=== PATIENT | female | born 1940 | race Asian ===

== ENCOUNTER 2017-09-02 23:44 | Emergency (ER) | payer OTHER ==
[2017-09-03 01:02] LABS: URINE PH (Dip) POC 6.5 (5.0-8.5)
[2017-09-03 01:02] LABS: URINE BLOOD (Dip) POC Negative (NEGATIVE); URINE GLUCOSE (Dip) POC Negative (NEGATIVE); URINE KETONES (Dip) POC Negative (NEGATIVE); URINE LEUKOCYTE EST (Dip) POC Negative (NEGATIVE); URINE NITRITE (Dip) POC Negative (NEGATIVE); URINE TOTAL PROTEIN POC Negative (NEGATIVE)
[2017-09-03 01:45] LABS: ADD MAN DIFF? NO
[2017-09-03 01:46] LABS: BASOPHILS % 0.5 % (0.0-2.0); EOSINOPHILS # 0.1 10^3/ul (0.0-0.5); EOSINOPHILS % 1.2 % (0.0-7.0); HEMATOCRIT 37.7 % (37.0-47.0); HEMOGLOBIN 12.4 g/dl (12.0-16.0); LYMPHOCYTES # 2.4 10^3/ul (0.8-2.9); LYMPHOCYTES % 37.6 % (15.0-51.0); MEAN CORPUSCULAR HEMOGLOBIN 30.5 pg (29.0-33.0); MEAN CORPUSCULAR HGB CONC 32.9 g/dl (32.0-37.0); MEAN CORPUSCULAR VOLUME 92.6 fl (82.0-101.0); MEAN PLATELET VOLUME 9.6 fl (7.4-10.4); MONOCYTE # 0.5 10^3/ul (0.3-0.9); MONOCYTES % 8.3 % (0.0-11.0); NEUTROPHIL # 3.4 10^3/ul (1.6-7.5); NEUTROPHILS % 52.2 % (39.0-77.0); PLATELET COUNT 241 10^3/UL (140-415); RED BLOOD COUNT 4.07 10^6/ul (4.20-5.40)
[2017-09-03 01:46] LABS: WHITE BLOOD COUNT 6.5 10^3/ul (4.8-10.8)
[2017-09-03 02:05] LABS: INR 0.85; PROTIME 11.7 Sec (11.9-14.9); PT RATIO 0.9
[2017-09-03 02:06] LABS: PARTIAL THROMBOPLASTIN TIME 32.3 Sec (25.0-35.0)
[2017-09-03 02:10] LABS: ALANINE AMINOTRANSFERASE 23 IU/L (13-69); ALBUMIN/GLOBULIN RATIO 1.17; ALKALINE PHOSPHATASE 45 IU/L (42-121); ANION GAP 18 (8-16); ASPARTATE AMINO TRANSFERASE 26 IU/L (15-46); BILIRUBIN,INDIRECT 0.4 mg/dl (0-1.1); BILIRUBIN,TOTAL 0.4 mg/dl (0.2-1.3); BLOOD UREA NITROGEN 19 mg/dl (7-20); CALCIUM 9.5 mg/dl (8.4-10.2); CARBON DIOXIDE 28 mmol/L (21-31); CHLORIDE 103 mmol/L (97-110); CREATININE 0.94 mg/dl (0.44-1.00); GLUCOSE 143 mg/dl (70-220); POTASSIUM 4.5 mmol/L (3.5-5.1); SODIUM 144 mmol/L (135-144); TOTAL PROTEIN 7.4 g/dl (6.1-8.1)
[2017-09-03 02:13] LABS: LACTIC ACID 4.6 mmol/L (0.5-2.0)
[2017-09-03 02:28] LABS: TROPONIN-I < 0.012 ng/ml (0.00-0.12)
[2017-09-03] MEDS: PIPER-TAZO 3.375 GM IV (PMX) 100 ML IVPB (03:02)
[2017-09-03] MEDS: VANCOMYCIN 1 GM (PMX) 250 ML IVPB (03:02)
[2017-09-03] MEDS: SOD CHLORIDE 0.9% IV (03:02)
[2017-09-03 04:27] LABS: LACTIC ACID 2.5 mmol/L (0.5-2.0)
[2017-09-03 05:54] LABS: LACTIC ACID 1.8 mmol/L (0.5-2.0)
[2017-09-03] MEDS ORDERED: SOD CHLORIDE 0.9% 1,000 ML IV (08:23)
[2017-09-03] MEDS ORDERED: ONDANSETRON 4 MG INJ IV (08:30)
[2017-09-03] MEDS ORDERED: morphine 2 MG INJ IV (08:30)
[2017-09-03] MEDS ORDERED: NACL 0.9% 3 ML SYG IV (08:30)
[2017-09-03] MEDS ORDERED: HYDROCODONE/APAP (5/325) TAB PO (08:30)
[2017-09-03] MEDS ORDERED: ACETAMINOPHEN 325 MG TAB PO (08:30)
[2017-09-03] MEDS: INSULIN GLARGINE [LANtus] 3 ML PEN SC (09:00)
[2017-09-03] MEDS ORDERED: DEXTROSE 50% 50 ML SYRINGE IV ×2 (09:00)
[2017-09-03] MEDS ORDERED: GLUCOSE GEL 15 GRAM TUBE BUCCAL (09:00)
[2017-09-03] MEDS ORDERED: GLUCOSE GEL 15 GRAM TUBE PO ×2 (09:00)
[2017-09-03] MEDS ORDERED: GLUCAGON 1 MG INJ IM (09:00)
[2017-09-03] MEDS: METOPROLOL (XL) 25 MG TAB PO (09:36)
[2017-09-03] MEDS ORDERED: INSULIN ASPART [NOVOLOG] 3 ML PEN SC (12:00)
[2017-09-03] MEDS ORDERED: ATORVASTATIN 10 MG TAB PO (21:00)
[2017-09-04] MEDS ORDERED: ACCU-CHEK XX (02:00)
== END 2017-09-03 09:38 | disposition home or self-care (01) ==
LOC: E/R 23:44
DX: R65.21 Severe sepsis with septic shock (principal); I10 Essential (primary) hypertension; E11.9 Type 2 diabetes mellitus without complications; Z79.82 Long term (current) use of aspirin
CPT/HCPCS: 36415; 70450; 71045; 80053; 81003; 82962; 83605; 84484; 85025; 85610; 85730; 87040; 87086; 93005; 96374; 96375; 99291-25

== ENCOUNTER 2017-10-04 20:39 | Emergency (ER) | payer OTHER ==
[2017-10-04 22:54] LABS: ADD MAN DIFF? NO
[2017-10-04 22:56] LABS: BASOPHILS % 0.2 % (0.0-2.0); EOSINOPHILS # 0.1 10^3/ul (0.0-0.5); EOSINOPHILS % 0.6 % (0.0-7.0); HEMATOCRIT 37.1 % (37.0-47.0); HEMOGLOBIN 12.1 g/dl (12.0-16.0); LYMPHOCYTES # 1.7 10^3/ul (0.8-2.9); LYMPHOCYTES % 19.5 % (15.0-51.0); MEAN CORPUSCULAR HEMOGLOBIN 29.5 pg (29.0-33.0); MEAN CORPUSCULAR HGB CONC 32.6 g/dl (32.0-37.0); MEAN CORPUSCULAR VOLUME 90.5 fl (82.0-101.0); MONOCYTE # 0.8 10^3/ul (0.3-0.9); MONOCYTES % 8.6 % (0.0-11.0); NEUTROPHIL # 6.3 10^3/ul (1.6-7.5); NEUTROPHILS % 70.8 % (39.0-77.0); PLATELET COUNT 239 10^3/UL (140-415); RED CELL DISTRIBUTION WIDTH 12.7 % (11.5-14.5)
[2017-10-04 22:56] LABS: WHITE BLOOD COUNT 8.9 10^3/ul (4.8-10.8)
[2017-10-04] MEDS: ONDANSETRON 4 MG INJ IV (22:57)
[2017-10-04] MEDS: SOD CHLORIDE 0.9% 1,000 ML IV (22:57)
[2017-10-04] MEDS: MECLIZINE 12.5 MG TAB PO (22:57)
[2017-10-04 23:06] LABS: ADD UMIC NO; UR ASCORBIC ACID NEGATIVE (NEGATIVE); UR BILIRUBIN (Dip) NEGATIVE (NEGATIVE); UR BLOOD (Dip) NEGATIVE (NEGATIVE); UR CLARITY CLEAR (CLEAR); UR COLOR YELLOW (YELLOW); UR GLUCOSE (Dip) 1+ mg/dL (NEGATIVE); UR KETONES (Dip) NEGATIVE (NEGATIVE); UR LEUKOCYTE ESTERASE (Dip) NEGATIVE Leu/ul (NEGATIVE); UR NITRITE (Dip) NEGATIVE (NEGATIVE); UR SPECIFIC GRAVITY (Dip) 1.008 (1.003-1.030); UR TOTAL PROTEIN (Dip) NEGATIVE (NEGATIVE); UR UROBILINOGEN (Dip) NEGATIVE (NEGATIVE)
[2017-10-04 23:13] LABS: ALANINE AMINOTRANSFERASE 28 IU/L (13-69); ALBUMIN 3.8 g/dl (3.3-4.9); ALBUMIN/GLOBULIN RATIO 1.11; ALKALINE PHOSPHATASE 49 IU/L (42-121); ANION GAP 16 (8-16); ASPARTATE AMINO TRANSFERASE 31 IU/L (15-46); BILIRUBIN,INDIRECT 0.6 mg/dl (0-1.1); BILIRUBIN,TOTAL 0.6 mg/dl (0.2-1.3); BLOOD UREA NITROGEN 18 mg/dl (7-20); CALCIUM 9.9 mg/dl (8.4-10.2); CARBON DIOXIDE 27 mmol/L (21-31); CHLORIDE 102 mmol/L (97-110); CREATINE KINASE 23 IU/L (23-200); GLUCOSE 179 mg/dl (70-220); POTASSIUM 4.1 mmol/L (3.5-5.1); SODIUM 141 mmol/L (135-144); TOTAL PROTEIN 7.2 g/dl (6.1-8.1)
[2017-10-04 23:16] LABS: INR 0.86; PROTIME 11.8 Sec (11.9-14.9); PT RATIO 0.9
[2017-10-04 23:17] LABS: PARTIAL THROMBOPLASTIN TIME 33.5 Sec (25.0-35.0)
[2017-10-04 23:25] LABS: CK INDEX 1.5; CK-MB 0.34 ng/ml (0.0-2.4)
[2017-10-04 23:26] LABS: TROPONIN-I < 0.012 ng/ml (0.000-0.120)
[2017-10-04 23:30] LABS: FREE THYROXINE INDEX (Calc) 3.26 ug/ml (0.65-3.89); T3 UPTAKE 35.8 % (23.5-40.5); T4 (THYROXINE) 9.1 ug/dl (5.5-11.0)
[2017-10-05] MEDS ORDERED: AZITHROMYCIN 500MG/NS (PMX) 250 ML IVPB (00:30)
[2017-10-05] MEDS: CEPHALEXIN 500 MG CAP PO (02:55)
== END 2017-10-05 03:55 | disposition home or self-care (01) ==
LOC: E/R 10-05 03:55
DX: E86.0 Dehydration (principal); N39.0 Urinary tract infection, site not specified; E11.9 Type 2 diabetes mellitus without complications; I10 Essential (primary) hypertension; R10.9 Unspecified abdominal pain; Z79.84 Long term (current) use of oral hypoglycemic drugs
CPT/HCPCS: 36415; 70450; 71045; 74176; 80053; 81003; 82550; 82553; 84436; 84479; 84484; 85025; 85610; 85730; 87086; 96374; 99285-25

== ENCOUNTER 2018-07-08 09:45 | Inpatient (IN) | payer OTHER ==
[2018-07-08] MEDS: SODIUM CHLORIDE 0.9% 1L BAG IV* (10:14)
[2018-07-08 10:15] LABS: ADD MAN DIFF? NO
[2018-07-08 10:18] LABS: BASOPHILS % 0.1 % (0.0-2.0); HEMATOCRIT 40.8 % (37.0-47.0); HEMOGLOBIN 13.3 g/dl (12.0-16.0); LYMPHOCYTES # 1.8 10^3/ul (0.8-2.9); LYMPHOCYTES % 16.3 % (15.0-51.0); MEAN CORPUSCULAR HEMOGLOBIN 30.2 pg (29.0-33.0); MEAN CORPUSCULAR HGB CONC 32.6 g/dl (32.0-37.0); MEAN CORPUSCULAR VOLUME 92.7 fl (82.0-101.0); MEAN PLATELET VOLUME 9.4 fl (7.4-10.4); MONOCYTE # 0.9 10^3/ul (0.3-0.9); MONOCYTES % 7.8 % (0.0-11.0); NEUTROPHIL # 8.2 10^3/ul (1.6-7.5); NEUTROPHILS % 75.5 % (39.0-77.0); PLATELET COUNT 239 10^3/UL (140-415); RED CELL DISTRIBUTION WIDTH 13.7 % (11.5-14.5)
[2018-07-08 10:18] LABS: WHITE BLOOD COUNT 10.9 10^3/ul (4.8-10.8)
[2018-07-08 10:26] LABS: INR 1.01; PROTIME 13.4 Sec (11.9-14.9)
[2018-07-08 10:27] LABS: PARTIAL THROMBOPLASTIN TIME 32.6 Sec (23.0-35.0)
[2018-07-08 10:29] LABS: ALANINE AMINOTRANSFERASE 12 IU/L (13-69); ALBUMIN 4.3 g/dl (3.3-4.9); ALKALINE PHOSPHATASE 55 IU/L (42-121); ANION GAP 11 (5-13); ASPARTATE AMINO TRANSFERASE 24 IU/L (15-46); BILIRUBIN,INDIRECT 0.7 mg/dl (0-1.1); BILIRUBIN,TOTAL 0.7 mg/dl (0.2-1.3); BLOOD UREA NITROGEN 17 mg/dl (7-20); CALCIUM 9.4 mg/dl (8.4-10.2); CARBON DIOXIDE 23 mmol/L (21-31); CHLORIDE 105 mmol/L (97-110); CREATININE 0.95 mg/dl (0.44-1.00); GLUCOSE 274 mg/dl (70-220); POTASSIUM 4.5 mmol/L (3.5-5.1); SODIUM 139 mmol/L (135-144); TOTAL PROTEIN 8.2 g/dl (6.1-8.1)
[2018-07-08 10:40] LABS: TROPONIN-I < 0.012 ng/ml (0.000-0.120)
[2018-07-08] MEDS: ACETAMINOPHEN 325 MG TAB PO ×2 (10:41→21:23)
[2018-07-08] MEDS: KETOROLAC 15 MG INJ IV (10:41)
[2018-07-08] MEDS: CEFEPIME 1GM/50 ML (PMX) 50 ML IVPB (10:41)
[2018-07-08 11:00] LABS: ADD UMIC YES; UR ASCORBIC ACID NEGATIVE (NEGATIVE); UR BACTERIA MANY /HPF (NONE SEEN); UR BILIRUBIN (Dip) NEGATIVE (NEGATIVE); UR BLOOD (Dip) 1+ mg/dL (NEGATIVE); UR CLARITY SLIGHTLY CLOUDY (CLEAR); UR COLOR YELLOW (YELLOW); UR GLUCOSE (Dip) 3+ mg/dL (NEGATIVE); UR KETONES (Dip) 1+ mg/dL (NEGATIVE); UR LEUKOCYTE ESTERASE (Dip) NEGATIVE Leu/ul (NEGATIVE); UR MUCUS FEW /HPF (NONE SEEN); UR NITRITE (Dip) POSITIVE (NEGATIVE); UR RBC 8 /HPF (0-5); UR SPECIFIC GRAVITY (Dip) 1.021 (1.003-1.030); UR TOTAL PROTEIN (Dip) 1+ mg/dl (NEGATIVE); UR UROBILINOGEN (Dip) 1+ mg/dL (NEGATIVE); UR WBC 9 /HPF (0-5)
[2018-07-08] MEDS: VANCOMYCIN 1 GM (PMX) 250 ML IVPB (11:18)
[2018-07-08] MEDS ORDERED: ACETAMINOPHEN 325 MG TAB PO (13:30)
[2018-07-08] MEDS ORDERED: ONDANSETRON 4 MG INJ IV (13:30)
[2018-07-08 14:44] LABS: LACTIC ACID 0.8 mmol/L (0.5-2.0)
[2018-07-08] MEDS ORDERED: MAGNESIUM HYDROXIDE 30ML CUP PO (15:00)
[2018-07-08] MEDS ORDERED: NITROGLYCERIN (SL) 0.4 MG TAB SL (15:00)
[2018-07-08] MEDS ORDERED: GLUCOSE GEL 15 GRAM TUBE PO ×2 (15:00)
[2018-07-08] MEDS ORDERED: DEXTROSE 50% 50 ML SYRINGE IV ×2 (15:00)
[2018-07-08] MEDS ORDERED: ALBUTEROL/IPRATROPIUM (NEB) 3 ML AMP HHN (15:00)
[2018-07-08] MEDS ORDERED: NACL 0.9% 3 ML SYG IV (15:00)
[2018-07-08] MEDS ORDERED: LORAZEPAM 2 MG INJ IV (15:00)
[2018-07-08] MEDS ORDERED: GLUCAGON 1 MG INJ IM (15:00)
[2018-07-08] MEDS ORDERED: GLUCOSE GEL 15 GRAM TUBE BUCCAL (15:00)
[2018-07-08 15:36] LABS: FREE T4 (FREE THYROXINE) 1.56 ng/dl (0.78-2.44)
[2018-07-08 16:02] LABS: LIPASE 78 U/L (23-300)
[2018-07-08] MEDS: SOD CHLORIDE 0.45% 1,000 ML IV (16:23)
[2018-07-08] MEDS: CIPROFLOXACIN 0.3% 2.5 ML OPH BOTH EYES (17:20)
[2018-07-08] MEDS: INSULIN ASPART [NOVOLOG] 3 ML PEN SC ×2 (18:09→21:00)
[2018-07-08] MEDS: PIPER-TAZO 3.375 GM IV (PMX) 100 ML IVPB (18:10)
[2018-07-08 20:50] LABS: LACTIC ACID 1.1 mmol/L (0.5-2.0)
[2018-07-08] MEDS: ATORVASTATIN 10 MG TAB PO (21:23)
[2018-07-08] MEDS: HEPARIN 5,000 UNIT/1 ML VIAL SC (21:27)
[2018-07-09] MEDS: PIPER-TAZO 3.375 GM IV (PMX) 100 ML IVPB ×4 (00:15→18:11)
[2018-07-09] MEDS: INSULIN ASPART [NOVOLOG] 3 ML PEN SC ×6 (02:00→20:54)
[2018-07-09] MEDS: ACCU-CHEK XX (02:00)
[2018-07-09 03:22] LABS: LACTIC ACID 0.7 mmol/L (0.5-2.0)
[2018-07-09] MEDS: SOD CHLORIDE 0.45% 1,000 ML IV ×2 (03:53→09:55)
[2018-07-09] MEDS: PANTOPRAZOLE (EC) 40 MG TAB PO (05:15)
[2018-07-09] MEDS: DOCUSATE SODIUM 100 MG CAP PO (05:15)
[2018-07-09 05:51] LABS: ADD MAN DIFF? NO
[2018-07-09 05:53] LABS: BASOPHILS % 0.4 % (0.0-2.0); EOSINOPHILS # 0.1 10^3/ul (0.0-0.5); EOSINOPHILS % 1.1 % (0.0-7.0); HEMOGLOBIN 11.1 g/dl (12.0-16.0); LYMPHOCYTES # 1.3 10^3/ul (0.8-2.9); LYMPHOCYTES % 16.5 % (15.0-51.0); MEAN CORPUSCULAR HEMOGLOBIN 30.1 pg (29.0-33.0); MEAN CORPUSCULAR HGB CONC 31.7 g/dl (32.0-37.0); MEAN CORPUSCULAR VOLUME 94.9 fl (82.0-101.0); MEAN PLATELET VOLUME 9.7 fl (7.4-10.4); MONOCYTE # 0.6 10^3/ul (0.3-0.9); MONOCYTES % 7.2 % (0.0-11.0); NEUTROPHIL # 6.1 10^3/ul (1.6-7.5); NEUTROPHILS % 74.4 % (39.0-77.0); PLATELET COUNT 211 10^3/UL (140-415); RED BLOOD COUNT 3.69 10^6/ul (4.20-5.40); RED CELL DISTRIBUTION WIDTH 13.7 % (11.5-14.5)
[2018-07-09 05:53] LABS: WHITE BLOOD COUNT 8.1 10^3/ul (4.8-10.8)
[2018-07-09 06:11] LABS: HEMOGLOBIN A1C 7.8 % (0-5.9)
[2018-07-09 06:27] LABS: ANION GAP 8 (5-13); BLOOD UREA NITROGEN 16 mg/dl (7-20); CALCIUM 7.9 mg/dl (8.4-10.2); CARBON DIOXIDE 22 mmol/L (21-31); CHLORIDE 109 mmol/L (97-110); CREATININE 0.88 mg/dl (0.44-1.00); GLUCOSE 102 mg/dl (70-220); MAGNESIUM 1.8 mg/dl (1.7-2.5); PHOSPHORUS 2.8 mg/dl (2.5-4.9); POTASSIUM 4.1 mmol/L (3.5-5.1); SODIUM 139 mmol/L (135-144)
[2018-07-09 06:33] LABS: HDL CHOLESTEROL 19 mg/dl (33-92); LDL CHOLESTEROL,CALCULATED 36 mg/dl; TRIGLYCERIDES 110 mg/dl (0-149)
[2018-07-09 06:33] LABS: CHOLESTEROL 77 mg/dl (100-200)
[2018-07-09] MEDS: METOPROLOL (XL) 25 MG TAB PO (08:22)
[2018-07-09] MEDS: HEPARIN 5,000 UNIT/1 ML VIAL SC ×2 (08:24→20:58)
[2018-07-09] MEDS: INSULIN GLARGINE [LANTus] (100 UNITS/ML) SYG SC (08:24)
[2018-07-09] MEDS: morphine 2 MG INJ IV (08:35)
[2018-07-09] MEDS ORDERED: INSULIN GLARGINE [LANtus] 3 ML PEN SC (09:00)
[2018-07-09] MEDS: CIPROFLOXACIN 0.3% 2.5 ML OPH BOTH EYES ×2 (09:00→10:49)
[2018-07-09 09:33] LABS: LACTIC ACID 1.2 mmol/L (0.5-2.0)
[2018-07-09] MEDS: GUAIFENESIN 20 MG/ML 5ML CUP PO (10:48)
[2018-07-09] MEDS: HYDROCODONE/APAP (5/325) TAB PO (15:29)
[2018-07-09] MEDS: ONDANSETRON 4 MG INJ IV (17:28)
[2018-07-09] MEDS ORDERED: TRIMETHOBENZAMIDE 100 MG/ML VIAL IM (17:30)
[2018-07-09] MEDS: ATORVASTATIN 10 MG TAB PO (20:54)
[2018-07-10] MEDS: PIPER-TAZO 3.375 GM IV (PMX) 100 ML IVPB ×4 (00:15→17:55)
[2018-07-10] MEDS: ACCU-CHEK XX (01:07)
[2018-07-10] MEDS: SOD CHLORIDE 0.45% 1,000 ML IV ×2 (01:07→17:56)
[2018-07-10] MEDS: PANTOPRAZOLE (EC) 40 MG TAB PO ×2 (05:29→08:31)
[2018-07-10 06:15] LABS: ADD MAN DIFF? NO
[2018-07-10 06:31] LABS: WHITE BLOOD COUNT 7.6 10^3/ul (4.8-10.8)
[2018-07-10 06:31] LABS: BASOPHILS % 0.1 % (0.0-2.0); EOSINOPHILS % 0.5 % (0.0-7.0); HEMATOCRIT 33.2 % (37.0-47.0); HEMOGLOBIN 11.1 g/dl (12.0-16.0); LYMPHOCYTES # 1.7 10^3/ul (0.8-2.9); LYMPHOCYTES % 21.9 % (15.0-51.0); MEAN CORPUSCULAR HEMOGLOBIN 31.3 pg (29.0-33.0); MEAN CORPUSCULAR HGB CONC 33.4 g/dl (32.0-37.0); MEAN CORPUSCULAR VOLUME 93.5 fl (82.0-101.0); MEAN PLATELET VOLUME 9.8 fl (7.4-10.4); MONOCYTE # 0.4 10^3/ul (0.3-0.9); MONOCYTES % 5.7 % (0.0-11.0); NEUTROPHIL # 5.4 10^3/ul (1.6-7.5); NEUTROPHILS % 71.3 % (39.0-77.0); PLATELET COUNT 260 10^3/UL (140-415); RED BLOOD COUNT 3.55 10^6/ul (4.20-5.40)
[2018-07-10 06:47] LABS: ANION GAP 9 (5-13); BLOOD UREA NITROGEN 15 mg/dl (7-20); CALCIUM 8.2 mg/dl (8.4-10.2); CARBON DIOXIDE 20 mmol/L (21-31); CHLORIDE 108 mmol/L (97-110); CREATININE 0.79 mg/dl (0.44-1.00); GLUCOSE 86 mg/dl (70-220); POTASSIUM 4.2 mmol/L (3.5-5.1); SODIUM 137 mmol/L (135-144)
[2018-07-10] MEDS: INSULIN ASPART [NOVOLOG] 3 ML PEN SC ×4 (08:00→21:00)
[2018-07-10] MEDS: CIPROFLOXACIN 0.3% 2.5 ML OPH BOTH EYES (08:30)
[2018-07-10] MEDS: METOPROLOL (XL) 25 MG TAB PO (08:31)
[2018-07-10] MEDS: HEPARIN 5,000 UNIT/1 ML VIAL SC ×2 (09:20→20:42)
[2018-07-10] MEDS: INSULIN GLARGINE [LANTus] (100 UNITS/ML) SYG SC (09:20)
[2018-07-10] MEDS: GUAIFENESIN 20 MG/ML 5ML CUP PO (20:36)
[2018-07-10] MEDS: ACETAMINOPHEN 325 MG TAB PO (20:36)
[2018-07-10] MEDS: ATORVASTATIN 10 MG TAB PO (20:36)
[2018-07-11] MEDS: PIPER-TAZO 3.375 GM IV (PMX) 100 ML IVPB ×3 (00:59→13:21)
[2018-07-11] MEDS: ACCU-CHEK XX (02:00)
[2018-07-11 06:17] LABS: ADD MAN DIFF? NO
[2018-07-11 06:26] LABS: BASOPHILS % 0.4 % (0.0-2.0); EOSINOPHILS # 0.1 10^3/ul (0.0-0.5); EOSINOPHILS % 1.9 % (0.0-7.0); HEMATOCRIT 32.4 % (37.0-47.0); HEMOGLOBIN 10.7 g/dl (12.0-16.0); LYMPHOCYTES # 1.3 10^3/ul (0.8-2.9); LYMPHOCYTES % 23.5 % (15.0-51.0); MEAN CORPUSCULAR HEMOGLOBIN 30.3 pg (29.0-33.0); MEAN CORPUSCULAR VOLUME 91.8 fl (82.0-101.0); MEAN PLATELET VOLUME 9.8 fl (7.4-10.4); MONOCYTE # 0.5 10^3/ul (0.3-0.9); MONOCYTES % 8.5 % (0.0-11.0); NEUTROPHIL # 3.5 10^3/ul (1.6-7.5); NEUTROPHILS % 65.3 % (39.0-77.0); PLATELET COUNT 280 10^3/UL (140-415); RED BLOOD COUNT 3.53 10^6/ul (4.20-5.40); RED CELL DISTRIBUTION WIDTH 13.2 % (11.5-14.5)
[2018-07-11 06:26] LABS: WHITE BLOOD COUNT 5.3 10^3/ul (4.8-10.8)
[2018-07-11 07:32] LABS: ANION GAP 8 (5-13); BLOOD UREA NITROGEN 13 mg/dl (7-20); CALCIUM 8.3 mg/dl (8.4-10.2); CARBON DIOXIDE 20 mmol/L (21-31); CHLORIDE 111 mmol/L (97-110); GLUCOSE 112 mg/dl (70-220); POTASSIUM 3.9 mmol/L (3.5-5.1); SODIUM 139 mmol/L (135-144)
[2018-07-11] MEDS: INSULIN ASPART [NOVOLOG] 3 ML PEN SC ×2 (08:00→13:25)
[2018-07-11] MEDS: GUAIFENESIN 20 MG/ML 5ML CUP PO ×2 (08:12→12:40)
[2018-07-11] MEDS: METOPROLOL (XL) 25 MG TAB PO (08:13)
[2018-07-11] MEDS: HEPARIN 5,000 UNIT/1 ML VIAL SC (08:26)
[2018-07-11] MEDS: INSULIN GLARGINE [LANTus] (100 UNITS/ML) SYG SC (08:26)
[2018-07-11] MEDS: CIPROFLOXACIN 0.3% 2.5 ML OPH BOTH EYES (10:28)
[2018-07-11] MEDS: SOD CHLORIDE 0.45% 1,000 ML IV (10:29)
== END 2018-07-11 15:50 | disposition home health service (06) | DRG 872 ==
LOC: E/R 09:45 → 2NE 13:24
DX: A41.9 Sepsis, unspecified organism (principal); N39.0 Urinary tract infection, site not specified; E11.9 Type 2 diabetes mellitus without complications; I10 Essential (primary) hypertension; Z79.4 Long term (current) use of insulin; E78.00 Pure hypercholesterolemia, unspecified; Z90.49 Acquired absence of other specified parts of digestive tract
CPT/HCPCS: 36415; 70450; 71045; 76705; 80048; 80053; 80061; 81001; 82962; 83036; 83605; 83690; 83735; 84100; 84439; 84443; 84484; 85025; 85610; 85730; 87040; 87086; 87400; 92610; 93005; 96365; 96366; 96367; 96375; 97162; 97167; 99291-25

== ENCOUNTER 2018-10-10 19:19 | Emergency (ER) | payer OTHER ==
[2018-10-10 20:14] LABS: ADD MAN DIFF? NO; BASOPHILS % 0.3 % (0.0-2.0); EOSINOPHILS # 0.1 10^3/ul (0.0-0.5); EOSINOPHILS % 0.9 % (0.0-7.0); HEMATOCRIT 39.6 % (37.0-47.0); LYMPHOCYTES % 19.4 % (15.0-51.0); MEAN CORPUSCULAR HEMOGLOBIN 30.2 pg (29.0-33.0); MEAN CORPUSCULAR HGB CONC 32.8 g/dl (32.0-37.0); MEAN CORPUSCULAR VOLUME 91.9 fl (82.0-101.0); MEAN PLATELET VOLUME 9.4 fl (7.4-10.4); MONOCYTE # 0.6 10^3/ul (0.3-0.9); MONOCYTES % 5.7 % (0.0-11.0); NEUTROPHIL # 7.4 10^3/ul (1.6-7.5); NEUTROPHILS % 73.4 % (39.0-77.0); PLATELET COUNT 262 10^3/UL (140-415); RED BLOOD COUNT 4.31 10^6/ul (4.20-5.40); RED CELL DISTRIBUTION WIDTH 13.4 % (11.5-14.5)
[2018-10-10 20:14] LABS: WHITE BLOOD COUNT 10.1 10^3/ul (4.8-10.8)
[2018-10-10 20:30] LABS: ALANINE AMINOTRANSFERASE 23 IU/L (13-69); ALBUMIN 4.6 g/dl (3.3-4.9); ALBUMIN/GLOBULIN RATIO 1.27; ALKALINE PHOSPHATASE 48 IU/L (42-121); ANION GAP 10 (5-13); ASPARTATE AMINO TRANSFERASE 35 IU/L (15-46); BILIRUBIN,INDIRECT 0.6 mg/dl (0-1.1); BILIRUBIN,TOTAL 0.6 mg/dl (0.2-1.3); BLOOD UREA NITROGEN 22 mg/dl (7-20); CALCIUM 9.8 mg/dl (8.4-10.2); CARBON DIOXIDE 27 mmol/L (21-31); CHLORIDE 100 mmol/L (97-110); CREATININE 0.81 mg/dl (0.44-1.00); GLUCOSE 201 mg/dl (70-220); SODIUM 137 mmol/L (135-144); TOTAL PROTEIN 8.2 g/dl (6.1-8.1)
[2018-10-10 20:40] LABS: PROTIME 12.3 Sec (11.9-14.9)
[2018-10-10 20:41] LABS: PARTIAL THROMBOPLASTIN TIME 26.6 Sec (23.0-35.0)
[2018-10-10] MEDS: HYDROCODONE/APAP (5/325) TAB PO (21:48)
== END 2018-10-10 23:01 | disposition home or self-care (01) ==
LOC: E/R 19:19
DX: S82.892A Other fracture of left lower leg, initial encounter for closed fracture (principal); I10 Essential (primary) hypertension; R51 Headache; W07.XXXA Fall from chair, initial encounter; Y92.9 Unspecified place or not applicable; Z79.4 Long term (current) use of insulin
CPT/HCPCS: 29515; 36415; 70450; 73610-RT; 80053; 85025; 85610; 85730; 99285-25